=== PATIENT | female | born 1980 | race Caucasian/White ===

== ENCOUNTER 2019-04-29 10:06 | Emergency (ER) | payer MEDICAID ==
[2019-04-29] MEDS: KETOROLAC 30 MG INJ IM (12:28)
== END 2019-04-29 13:33 | disposition home or self-care (01) ==
LOC: FTE 10:06
DX: S16.1XXA Strain of muscle, fascia and tendon at neck level, initial encounter (principal); S39.012A Strain of muscle, fascia and tendon of lower back, initial encounter; R07.9 Chest pain, unspecified; V43.52XA Car driver injured in collision with other type car in traffic accident, initial encounter
CPT/HCPCS: 71045; 72072; 81025; 96372; 99284-25